=== PATIENT | male | born 1995 | race Caucasian/White ===

== ENCOUNTER 2019-10-05 19:28 | Emergency (ER) | payer BC ==
[~2019-10-05] VITALS: Ht 185.4 cm; Wt 74.8 kg
--- NOTE | 2019-10-05 19:39 | NUR ---
TWO SHOTS OF ALCOHOL APPROX 1500 AND SMOKED MARIJUANNA THIS MORNING
[2019-10-05] MEDS ORDERED: ondansetron/PF 4mg/2ml inj IV ONE (20:30)
[2019-10-05] MEDS ORDERED: morphine 4 MG/ML inj SYRINge IV ONE (20:30)
[2019-10-05] MEDS ORDERED: propofol 10mg/ml 20ml vial IV ONE (21:15)
--- NOTE | 2019-10-05 21:37 | NUR ---
PROPOFOL PULLED BY ME, PROPOFOL PASSED OFF TO TRANG NAJERA FOR MOD SEDATION PROCEDURE.
[2019-10-05 22:22] VITALS: BP 118/75
== END 2019-10-05 22:23 | disposition home or self-care (01) ==
LOC: ER 19:29
DX: S43.005A Unspecified dislocation of left shoulder joint, initial encounter (principal); S80.812A Abrasion, left lower leg, initial encounter; M25.512 Pain in left shoulder; W19.XXXA Unspecified fall, initial encounter; Y93.89 Activity, other specified; Y92.89 Other specified places as the place of occurrence of the external cause; Y99.8 Other external cause status
CPT/HCPCS: 23650; 73030; 96374; 96375; 99152; 99285; J2270; J2405; 94760